=== PATIENT | male | born 1965 | race Caucasian/White ===

== ENCOUNTER 2020-02-24 09:41 | Outpatient (CLI) | payer BC ==
--- NOTE | 2020-02-24 16:21 | NM ---
NUCLEAR MEDICINE BRAIN IMAGIN02/24/20 HISTORY: Parkinson's disease. TECHNIQUE: A DaTscan with axial tomographic images of the brain was obtained three hours following the intraveno us administration of 4.1 millicuries of Iodine 123 Ioflupane. FINDINGS: There is loss of normal symmetric uptake in the striata bilaterally with period shaped uptake noted o n either side. IMPRESSION: Findings are consistent with parkinsonian syndrome which includes Parkinson's disease. POS: [facility]
== END 2020-02-24 09:42 | disposition home or self-care (01) ==
LOC: NM 09:41
PROVIDERS: ATTEND Psychiatry & Neurology Neurology
DX: G20 Parkinson's disease (principal)
CPT/HCPCS: 78803; A9584